=== PATIENT | male | born 1965 | race Caucasian/White ===

== ENCOUNTER 2019-07-13 08:58 | Outpatient (RCR) | payer BC, SELFPAY | END 2019-10-11 23:59 | disposition home or self-care (01) | LOC: ANHDMC 08:58 | PROVIDERS: PCP Family Medicine; Visit Provider Family Medicine | DX: E11.65 Type 2 diabetes mellitus with hyperglycemia (principal); Z71.89 Other specified counseling | CPT/HCPCS: G0108 ==

== ENCOUNTER 2019-11-25 16:08 | Outpatient (CLI) | payer BC, SELFPAY ==
[2019-11-25 17:16] LABS: Alanine Aminotransferase 21 U/L (4-50); Albumin Level 4.6 g/dL (3.5-5.1); Alkaline Phosphatase 67 U/L (38-126); Aspartate Amino Transferase 27 U/L (17-59); Bilirubin,Total 0.5 mg/dL (0.2-1.3); Blood Urea Nitrogen 17 mg/dL (9-20); Calcium 9.8 mg/dL (8.4-10.2); Carbon Dioxide 29 mmol/L (22-30); Chloride 94 mmol/L (98-107); Cholesterol 203 mg/dL (0-200); Estimated Glomerular Filt Rate > 60; Glucose 91 mg/dL (75-110); HDL Direct 36 mg/dL; Potassium 3.2 mmol/L (3.4-5.0); Sodium 135 mmol/L (137-145); Triglycerides 137 mg/dL (<150)
[2019-11-25 17:27] LABS: LDL Cholesterol Direct 124 mg/dL
[2019-11-25 17:28] LABS: Hemoglobin A1C 5.6 % (<5.7)
== END 2019-11-25 16:09 | disposition home or self-care (01) ==
PROVIDERS: PCP Family Medicine; Visit Provider Family Medicine
DX: E11.65 Type 2 diabetes mellitus with hyperglycemia (principal)
CPT/HCPCS: 36415; 80053; 80061; 83036

== ENCOUNTER 2019-12-13 16:23 | Outpatient (CLI) | payer BC, SELFPAY ==
[2019-12-13 16:55] LABS: Blood Urea Nitrogen 21 mg/dL (9-20); Calcium 9.4 mg/dL (8.4-10.2); Carbon Dioxide 27 mmol/L (22-30); Chloride 96 mmol/L (98-107); Estimated Glomerular Filt Rate > 60; Glucose 107 mg/dL (75-110); Sodium 134 mmol/L (137-145)
== END 2019-12-13 16:24 | disposition home or self-care (01) ==
PROVIDERS: PCP Family Medicine; Visit Provider Family Medicine
DX: E87.6 Hypokalemia (principal)
CPT/HCPCS: 36415; 80048

== ENCOUNTER 2020-03-06 10:42 | Outpatient (NON) | payer BC, SELFPAY ==
[2020-03-06 21:25] LABS: SARS-CoV-2 RNA PCR Negative
== END 2020-03-06 10:43 ==
PROVIDERS: PCP Family Medicine; Visit Provider Family Medicine
DX: Z20.828 Contact with and (suspected) exposure to other viral communicable diseases (principal)
CPT/HCPCS: 87635; C9803; U0003

== ENCOUNTER 2020-05-31 16:33 | Outpatient (CLI) | payer BC, SELFPAY ==
--- NOTE | ~2020-05-31 | XR_ITS ---
EXAMINATION: XR shoulder RT min 2V DATE: 05/31/2020 16:58 INDICATION: Bicipital tendinitis. TECHNIQUE: 4 views of right shoulder were obtained. COMPARISON: None. FINDINGS: Bone alignment is normal. No fracture. There is mild osteoarthritis of glenohumeral joint a nd moderate osteoarthritis of acromioclavicular joint. IMPRESSION: 1. Polyarticular osteoarthritis. Reviewed, dictated and finalized at location A. OUND SALES AGENT
== END 2020-05-31 16:34 | disposition home or self-care (01) ==
PROVIDERS: PCP Family Medicine; Visit Provider Family Medicine
DX: M75.21 Bicipital tendinitis, right shoulder (principal); M19.011 Primary osteoarthritis, right shoulder
CPT/HCPCS: 73030

== ENCOUNTER 2021-04-21 19:23 | Emergency (ER) | payer BC, SELFPAY ==
--- NOTE | 2021-04-21 19:25 | ED.GENADULT ---
HPI - General Adult General Chief complaint: Extremity Injury, Lower Stated complaint: right leg blue/black Time Seen by Provider: 04/21/21 19:25 Source: patient Mode of arrival: ambulatory Limitations: no limitations History of Present Illness HPI narrative: Jaime is a 56M with a PMH of back pain, HLD, psoriasis, BPH, prostatitis and angioedema that presented to the emergency department with discoloration on his inner thigh. He reports the area is a little tender but not exquisitely painful. He denies injury to the area or and numbness/weakness. He has been on a prednisone taper for a herniated disc (starting at 60mg) for a few days now. Related Data Home Medications Medication Instructions Recorded Confirmed multivitamin-ferrous 1 tablet PO DAILY 04/12/19 04/18/21 fumarate-folic acid 18 mg-400 mcg tablet lancets #50 each 05/24/19 04/18/21 Allergies Allergy/AdvReac Type Severity Reaction Status Date / Time Penicillins Allergy Severe RASH Verified 04/18/21 14:59 benazepril Allergy Intermediate Rash Verified 04/18/21 14:59 metformin Allergy Unknown Rash Verified 04/18/21 14:59 Review of Systems Constitutional: Constitutional: Reports no additional constitutional complaints Eyes: Eyes: Reports no additional eye complaints ENT: Reports system reviewed and no additional complaints, except as documented Cardiovascular: Cardiovascular: Reports no additional cardiovascular complaints Respiratory: Respiratory: Reports no additional respiratory complaints Gastrointestinal: Gastrointestinal: Reports no additional gastrointestinal complaints Genitourinary: Genitourinary: Reports no additional male genitourinary complaints Musculoskeletal: Musculoskeletal: Reports no additional musculoskeletal complaints Integumentary/Breasts: Skin/Breast: Reports as per HPI Neurologic: Reports system reviewed and no additional complaints, except as documented Psychiatric: Psychiatric: Reports no additional psychiatric complaints Endocrine: Endocrine: Reports no additional endocrine complaints Hematologic/Lymphatic: Hematologic/Lymphatic: Reports no additional hematologic/lymphatic complaints Allergic/Immunologic: Allergic/Immunologic: Reports no additional allergic/immunologic complaints [facility] Past Medical History Medical History Bacterial prostatitis Bicipital tendinitis, right shoulder Chronic superficial dermatitis Diabetes mellitus type 2, uncontrolled Surgical History Surgical History Status post left rotator cuff repair (12/18/18) Family History Family History Mother Family history of lung cancer Family history of malignant neoplasm Social History Social History Alcohol intake: current Exam Const: General: no acute distress and alert; No confusion Orientation/consciousness: patient oriented x3 Limitations: No altered mental status HENMT: Head: normal to inspection Other: normocephalic, atrauamtic Eyes: Conjunctivae: conjunctivae normal Pupils: Equal, round and reactive pupils present Neck: Neck: normal visual inspection Chest: Chest palpation & inspection: normal inspection of the chest Resp: Effort & Inspection: normal respiratory effort Auscultation: clear to auscultation bilaterally Cardio: Rate: regular rate and not tachycardic Rhythm: regular rhythm GI: Inspection: non-distended GI Palp: Yes Soft to palpation, No Tenderness to palpation present (GI) and No Guarding due to palpation present (GI) Skin: General skin exam: normal color Rashes: no rashes Neuro: General: patient oriented x3, moves all extremities, no meningeal signs and CN's II-XI intact bilaterally Extrem: Other: Right inner thigh is is purplish in color and mildly TTP. Distal pulses are st
[2021-04-21 19:54] VITALS: BP 180/111; PULSE 103; RESP 22; TEMP 36.8; O2SAT 97
[2021-04-21 20:07] VITALS: BP 180/111; PULSE 103; RESP 22; TEMP 36.8; O2SAT 97
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
== END 2021-04-21 20:09 | disposition home or self-care (01) ==
PROVIDERS: Emergency Provider Family Medicine; PCP Family Medicine
DX: R58 Hemorrhage, not elsewhere classified (principal); T38.0X5A Adverse effect of glucocorticoids and synthetic analogues, initial encounter
CPT/HCPCS: 99281; 99282

== ENCOUNTER → 2021-04-23 10:39 | Outpatient (CLI) | payer BC, SELFPAY ==
--- NOTE | ~2021-04-23 | XR_ITS ---
EXAMINATION: XR lumbar spine 6V w bending DATE: 04/23/2021 11:20 INDICATION: Radiculopathy, lumbosacral region. TECHNIQUE: 7 views of lumbar spine including flexion and extension views were obtained. COMPARISON: CT abdomen and pelvis 06/01/2018 FINDINGS: There is 4 degrees dextrocurvature of cervical spine. There are chronic bilateral L5 pars d efects. There is 9 mm anterolisthesis of L5 on S1. There is no abnormal motion with flexion or extens ion. There is mild chronic height loss of L5 vertebral body posteriorly. There is mild chronic anteri or wedging of L1 vertebral body. There are Schmorl's nodes at multiple levels. There is severely decr eased disc height at L5-S1 with endplate remodeling. There are endplate osteophytes at most levels. T here is multilevel mild facet joint osteoarthritis. There is a filter in the inferior vena cava. IMPRESSION: 1. Chronic bilateral L5 pars defects with grade 2 anterolisthesis of L5 on S1. 2. Severe lower lumbar spondylosis. Reviewed, dictated and finalized at location A. SHIFTER
== END ==
PROVIDERS: PCP Family Medicine; Visit Provider Family Medicine
DX: M47.27 Other spondylosis with radiculopathy, lumbosacral region (principal)
CPT/HCPCS: 72114

== ENCOUNTER → 2021-04-30 13:12 | Outpatient (CLI) | payer BC, SELFPAY ==
--- NOTE | ~2021-04-30 | MR_ITS ---
EXAMINATION: MR lumbar spine wo [facility] EXAM DATE: 04/30/2021 13:50 INDICATION: M54.17 - Radiculopathy. Low back pain, right leg pain. States lifting injury 7 weeks ago. TECHNIQUE: Multi-sequential, multiplanar MR images of the lumbar spine were obtained without contrast . Sagittal T1, T2, T2 fat saturation images. Axial T2 weighted images. There is no prior study for comparison. FINDINGS: There is mild anterior wedging of the L1 vertebral body, chronic. There is chronic bilatera l L5 spondylolysis with grade 2 anterolisthesis L5 on S1, moderate to severe loss of this disc height . Mild disc disease from T10 through L4. The conus medullaris terminates at the L1/2 level and has no rmal signal intensity and morphology. Small endplate Schmorl's nodes. Level by level evaluation: T11-12: Small left central disc protrusion. Facet arthropathy: None. Neural foraminal stenosis: No stenosis. Central canal stenosis: No stenosis. T12-L1: There is a mild diffuse disc bulge. Facet arthropathy: None. Neural foraminal stenosis: No stenosis. Central canal stenosis: No stenosis. L1-L2: Disc does not extend beyond the endplate margin. Facet arthropathy: Mild. Neural foraminal stenosis: No stenosis. Central canal stenosis: No stenosis. L2-L3: There is a mild diffuse disc bulge. Facet arthropathy: Mild to moderate. Neural foraminal stenosis: Mild bilateral. Central canal stenosis: No stenosis. L3-L4: There is a mild diffuse disc bulge. Facet arthropathy: Mild. Neural foraminal stenosis: No stenosis. Central canal stenosis: No stenosis. L4-L5: There is a mild diffuse disc bulge. Facet arthropathy: Mild bilateral. Neural foraminal stenosis: Moderate bilateral, right greater than left. Central canal stenosis: No stenosis. L5-S1: There is a mild to moderate diffuse disc bulge. Facet arthropathy: Poorly visualized. Neural foraminal stenosis: Moderate bilateral. Central canal stenosis: No stenosis. IMPRESSION: 1. L4-5 and L5-S1 moderate bilateral neural foraminal stenosis. 2. Chronic L5 spondylolysis, grade 2 anterolisthesis. 3. Chronic L1 compression. Reviewed, dictated and finalized at location A. E REPAIRER RECLAMATION
== END ==
PROVIDERS: PCP Family Medicine; Visit Provider Family Medicine
DX: M54.17 Radiculopathy, lumbosacral region (principal); M47.896 Other spondylosis, lumbar region
CPT/HCPCS: 72148

== ENCOUNTER 2021-11-06 11:32 | Emergency (ER) | payer BC, SELFPAY ==
[2021-11-06 11:32] VITALS: BP 140/85; PULSE 100; RESP 20; TEMP 36.2; O2SAT 100
[2021-11-06 12:02] LABS: Basophils Absolute Auto 0.06 K/mm3 (0.00-0.10); Basophils Percent Auto 0.4 % (0.0-1.0); Eosinophils Absolute Auto 0.78 K/mm3 (0.02-0.50); Eosinophils Percent Auto 5.6 % (1.0-6.0); Hematocrit 49.6 % (40.0-54.0); Hemoglobin 16.2 g/dL (14.0-18.0); Immature Granulocyte Absolute 0.07 K/mm3 (0.00-0.00); Immature Granulocyte Percent A 0.5 % (0.0-0.0); Lymphocytes Absolute Auto 1.05 K/mm3 (1.10-4.50); Lymphocytes Percent Auto 7.6 % (18.0-42.0); Mean Corpuscular HGB Conc 32.7 g/dL (32.0-36.0); Mean Corpuscular Hemoglobin 30.3 pg (27.0-31.0); Mean Corpuscular Volume 92.9 fL (78.0-102.0); Mean Platelet Volume 10.9 fl (8.7-11.0); Monocytes Absolute Auto 0.98 K/mm3 (0.10-0.90); Monocytes Percent Auto 7.1 % (2.0-11.0); Neutrophils Absolute Auto 10.9 K/mm3 (1.7-7.2); Neutrophils Percent Auto 78.8 % (50.0-70.0); Platelet Count Result 247 K/mm3 (150-420); Red Blood Count 5.34 M/mm3 (4.70-6.10); Red Cell Distribution Width 13.2 % (11.6-14.4); White Blood Count 13.9 K/mm3 (4.8-10.8)
[2021-11-06] MEDS: ACETAMINOPHEN 325 MG TABLET 975 MG PO (12:06)
[2021-11-06] MEDS: LACTATED RINGERS 1,000 ML 999 ML IV CONT ×2 (12:12→12:50)
[2021-11-06] MEDS: KETOROLAC 30 MG/ML VIAL (*BKC) IV PUSH (12:13)
[2021-11-06 12:18] LABS: Alanine Aminotransferase 46 U/L (16-63); Albumin Level 4.1 g/dL (3.4-5.0); Alkaline Phosphatase 95 U/L (46-116); Anion Gap 6 mmol/L (8-16); Aspartate Amino Transferase 16 U/L (15-37); Bilirubin,Total 0.7 mg/dL (0.00-1.00); Blood Urea Nitrogen 23 mg/dL (7-18); Calcium 9.4 mg/dL (8.5-10.1); Carbon Dioxide 33 mmol/L (21-32); Chloride 102 mmol/L (98-108); Estimated Glomerular Filt Rate > 60; Glucose 181 mg/dL (70-99); Osmolality Calculated 300 mOsm/kg (285-295); Potassium 4.2 mmol/L (3.5-5.1); Sodium 141 mmol/L (136-145); Total Protein 7.9 g/dL (6.4-8.2)
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
[2021-11-06] MEDS: SILVER SULFADIAZINE 1% CR 400 GM JAR (*BKC) 1 APPLIC TOPICAL (12:38)
[2021-11-06 12:40] VITALS: BP 132/68; PULSE 68; RESP 18; TEMP 36.4; O2SAT 100
== END 2021-11-06 13:35 | disposition home or self-care (01) ==
PROVIDERS: Emergency Provider Emergency Medicine; PCP Family Medicine
DX: L55.1 Sunburn of second degree (principal); L55.0 Sunburn of first degree; E86.0 Dehydration
CPT/HCPCS: 16020; 36415; 80053; 85025; 96361; 96374; 99284; A9270; J1885; J7120

== ENCOUNTER 2022-02-07 11:26 | Outpatient (CLI) | payer BC, SELFPAY ==
[2022-02-07 19:50] LABS: Alanine Aminotransferase 46 U/L (6-50); Albumin Level 4.5 g/dL (3.5-5.1); Alkaline Phosphatase 95 U/L (38-126); Anion Gap 11 mmol/L (8-16); Aspartate Amino Transferase 54 U/L (17-59); Bilirubin,Total 0.7 mg/dL (0.2-1.3); Blood Urea Nitrogen 20 mg/dL (9-20); Calcium 9.6 mg/dL (8.4-10.2); Carbon Dioxide 28 mmol/L (22-30); Chloride 100 mmol/L (98-107); Cholesterol 172 mg/dL (0-200); Estimated Glomerular Filt Rate > 60; Glucose 90 mg/dL (65-110); HDL Direct 43 mg/dL; Potassium 4.1 mmol/L (3.4-5.0); Sodium 139 mmol/L (137-145); Triglycerides 194 mg/dL (<150)
[2022-02-07 20:04] LABS: LDL Cholesterol Direct 92 mg/dL
[2022-02-07 20:10] LABS: Prostate Specific Antigen 4.4 ng/mL (< OR = 4.0)
[2022-02-07 20:42] LABS: Creatinine Urine 41.6 mg/dL
[2022-02-07 20:44] LABS: MALB Creatinine Ratio 14.9 mg/g (0-30); Microalbumin Urine Random 6.2 mg/L (0-16.7)
[2022-02-07 21:26] LABS: Hemoglobin A1C 5.8 % (<5.7)
== END 2022-02-07 11:27 | disposition home or self-care (01) ==
PROVIDERS: PCP Family Medicine; Visit Provider Family Medicine
DX: E78.5 Hyperlipidemia, unspecified (principal); E11.69 Type 2 diabetes mellitus with other specified complication; N13.8 Other obstructive and reflux uropathy; N40.1 Benign prostatic hyperplasia with lower urinary tract symptoms; I10 Essential (primary) hypertension; R97.20 Elevated prostate specific antigen [PSA]
CPT/HCPCS: 36415; 80053; 80061; 82043; 82607; 83036; 84153; G0103

== ENCOUNTER 2023-07-07 11:00 | Outpatient (CLI) | payer BC, SELFPAY ==
--- NOTE | ~2023-07-07 | XR_ITS ---
Right Shoulder Technique: AP and scapular Y views were obtained. Clinical History: Pain Findings: No fracture or dislocation is seen. Osseous alignment is anatomic. There is mild degenerati ve change of the glenohumeral and AC joints. Soft tissues are unremarkable. Impression: Mild degenerative changes, as above. Reviewed, dictated and finalized at location . UIT HELPER Impression: Mild degenerative changes, as above.
--- NOTE | ~2023-07-07 | XR_ITS ---
Left Shoulder Technique: AP and scapular Y views were obtained. Clinical History: Pain Findings: No fracture or dislocation is seen. Osseous alignment is anatomic. The glenohumeral and acr omioclavicular joint spaces are preserved. Soft tissues are unremarkable. Impression: Unremarkable left shoulder radiographs. Reviewed, dictated and finalized at [facility]. OWCASE CLEANER Impression: Unremarkable left shoulder radiographs.
== END 2023-07-07 11:01 | disposition home or self-care (01) ==
LOC: ANHIMG 11:05
PROVIDERS: PCP Family Medicine; Visit Provider Orthopaedic Surgery
DX: M19.012 Primary osteoarthritis, left shoulder (principal); M19.011 Primary osteoarthritis, right shoulder
CPT/HCPCS: 73030

== ENCOUNTER 2023-09-10 13:52 | Outpatient (CLI) | payer BC, SELFPAY ==
--- NOTE | ~2023-09-10 | MR_ITS ---
EXAMINATION: MR shoulder RT wo con DATE: 09/10/2023 14:30 INDICATION: Primary osteoarthritis at the right shoulder TECHNIQUE: Magnetic resonance imaging (MRI) of the right shoulder was performed without intravenous c ontrast. Sequences included axial PD-weighted FS FSE, coronal oblique PD-weighted FS FSE, coronal obl ique T2-weighted FS FSE, sagittal PD-weighted FS FSE, and sagittal T1-weighted SE. COMPARISON: None. FINDINGS: Coracoacromial arch: The acromion undersurface is curved in morphology (type II). The coracoacromial ligament is normal. M ild acromioclavicular osteoarthritis. There is prominent hypertrophic change along the cephalad aspec t of the acromion and lateral head of the clavicle as well as at the coracoid and clavicular insertio ns of the coracoclavicular ligament likely sequela of a prior chronic right acromioclavicular joint s eparation. Rotator cuff: Moderate supraspinatus and infraspinatus tendinopathy. There is a full-thickness tear of the posterio r most supraspinatus and anterior half of the infraspinatus tendons which overlies the apex of the hu meral head. Lateral margin of the tear is located 2.5 cm medial to the greater tuberosity footplate. The tear measures approximate 8 mm medial to lateral and 2.3 cm AP. The full-thickness tear is superi mposed over a larger moderate severity articular sided tear with significant attenuation of the supra spinatus and infraspinatus tendons on either side of the and retracted articular sided tear margin an d additional 1.2 cm medial to the medial margin of the full-thickness tear defect. The teres minor te ndon is normal. There is moderate subscapularis tendinopathy with full-thickness tear involving the cephalad two thir ds of the lesser tuberosity footplate. The caudal-most portion of the tendon as well as the subscapul salas muscular insertion remain intact. Also remaining intact as the bursal side of the more cephalad tendon which remains contiguous with the intact transverse humeral ligament. The frayed and poorly de fined tear margin is retracted approximately 3 cm medially from the lesser tuberosity footplate There is moderate fatty atrophy of the infraspinatus muscle belly and at the cephalad aspect of the subsca pularis muscle belly suggesting the tears are chronic. The supraspinatus muscle belly, teres minor mu scle belly and inferior aspect of the subscapularis muscle belly remain relatively preserved. Biceps tendon, glenoid labrum and glenohumeral cartilage: The long head of the biceps tendon is medially dislocated from the intertubercular groove passing med ial to the lesser tuberosity and between the remaining intact inferior and bursal portions of the sub scapularis tendon. There is moderate tendinopathy without discrete tear of the subluxed long head bic eps tendon. Diffuse degenerative tearing of the glenoid labrum most severe superiorly and posteriorly with the labral tissue appears thickened and with macerated appearance. There multiple prior labral cysts along the posterior margin of the glenoid. There is also deep chondral ulceration along the pos terior rim of the glenoid with underlying subarticular cystlike changes. Less severe partial thicknes s chondral ulceration along the posterior inferior aspect of the humeral head. Fluid: Physiologic amount of fluid in the glenohumeral joint. This extends through the full-thickness rotato r cuff tear defect to indicate with a small amount of fluid in the subacromial/subdeltoid bursa. No l oose osteochondral bodies. Bones: There is mild cephalad and posterior subluxation of the humeral head with respect to the glenoid. Nor mal marrow signal with no fracture or pathologic marrow replacing process. Hypertrophic changes along the lesser tuberosity side of the torn subscapularis tendon. IMPRESSION: 1. Moderate rotator cuff tendinopathy with likely chronic small to moderate-sized full-thickness tea
== END 2023-09-10 13:53 ==
PROVIDERS: PCP Orthopaedic Surgery; Visit Provider Orthopaedic Surgery
DX: M19.011 Primary osteoarthritis, right shoulder (principal); M75.121 Complete rotator cuff tear or rupture of right shoulder, not specified as traumatic
CPT/HCPCS: 73221

== ENCOUNTER 2023-11-21 11:41 | Outpatient (CLI) | payer BC, SELFPAY ==
--- NOTE | 2023-11-21 12:54 | ECG_ITS ---
Test Date: 2023-11-21 13:06:51 Measurements Intervals [place] Rate: 65 P: 61 FL: 195 QRS: 30 QRSD: 76 T: 35 QT: 354 QTc: 370 Interpretive Statements NORMAL SINUS RHYTHM NORMAL ELECTROCARDIOGRAM No previous ECG available for comparison Electronically Signed On 11-21-2023 15:55:52 CDT by Kael Joyce M.D.
[2023-11-21 13:16] LABS: Basophils Absolute Auto 0.1 K/mm3 (0.0-0.1); Basophils Percent Auto 0.9 % (0.2-1.2); Eosinophils Absolute Auto 0.7 K/mm3 (0-0.3); Hematocrit 47.1 % (42.0-52.0); Immature Granulocyte Absolute 0.05 K/mm3 (0.00-0.031); Immature Granulocyte Percent A 0.5 % (0-0.5); Lymphocytes Absolute Auto 2.15 K/mm3 (0.9-3.2); Lymphocytes Percent Auto 21.6 % (18.3-44.2); Mean Corpuscular Hemoglobin 30.2 pg (26-34); Mean Platelet Volume 10.8 fl (7.4-10.4); Monocytes Absolute Auto 0.8 K/mm3 (0.1-0.6); Monocytes Percent Auto 8.3 % (2.6-8.5); Neutrophils Absolute Auto 6.1 K/mm3 (1.3-6.7); Neutrophils Percent Auto 61.7 % (45.5-73.1); Platelet Count Result 240 k/mm3 (150-375); Red Blood Count 5.29 M/mm3 (4.6-6.20); Red Cell Distribution Width 12.8 % (11.5-14.5)
[2023-11-21 14:26] LABS: MRSA (PCR) NOT DETECTED (NOT DETECTE)
== END 2023-11-21 11:42 | disposition home or self-care (01) ==
LOC: ANHSURGERY 11:49
PROVIDERS: PCP Family Medicine; Visit Provider Orthopaedic Surgery
DX: M75.102 Unspecified rotator cuff tear or rupture of left shoulder, not specified as traumatic (principal); M19.011 Primary osteoarthritis, right shoulder; I10 Essential (primary) hypertension; Z01.818 Encounter for other preprocedural examination
CPT/HCPCS: 36415; 85025; 87641; 93005

== ENCOUNTER 2023-12-08 00:44 | Day surgery (SDC) | payer BC, SELFPAY ==
--- NOTE | 2023-11-21 12:40 | PC.NURSE ---
Report to the Outpatient Waiting Room, entrance under the green pavilion located off [facility], at time __1000 AM on date _12/08/23 . Planned Procedure Time: _1200 NOON . Time changes happen often and if your time is changed the preop area will call you the afternoon before. - You and your visitor will be asked to self-screen and do not enter if you have any COVID symptoms. - A mask is optional within the hospital at this time. Patients may have clear liquids (water, carbonated beverages, clear teas, apple juice) until 3 hours prior to surgery( 9:00 AM) with a maximum of 20 ounces. - No food from midnight until time of surgery - Infants may have breast milk until 4 hours before surgery, formula 6 hours prior to surgery. - Children will be allowed to drink immediately following surgery. If applicable, please bring a bottle or sippy cup to assist with drinking. Juice, water, soda, and popsicles are readily available. For infants on formula, please bring formula the day of surgery. Pacifiers are allowed. Take the following medications with a SIP of water the morning of surgery: ___NONE DO NOT STOP ANY OF YOUR OTHER PRESCRIPTION MEDICATIONS PRIOR TO SURGERY ?EXCEPT THE FOLLOWING Medications to discontinue per physician HOLD DICLOFENAC 7 DAYS PRE OP PER DR GALLOWAY.LAST DOSE 11/30/23. HOLD ALL VITAMINS AND SUPPLEMENTS 3 DAYS PRE OP.LAST DOSE 12/04/23 MAY TAKE TYLENOL IF NEEDED FOR PAIN Please no make-up, nail beninese, hairspray, perfume, deodorant, or body powder the day of surgery. No jewelry (including any body piercings) or valuables the day of surgery, leave them at home. Please take a shower or bath the night before, or the morning of, surgery with an antibacterial soap. Wear comfortable, loose fitting clothing. Children are encouraged to wear pajamas. - Jewelry must be removed prior to entering the operating room. Rings and piercings that are not removed may be cut off. - The hospital will not accept responsibility for valuables. - Please leave all valuables, including medications, at home the day of surgery. If you are going home after surgery, a licensed residential driver must drive you home. - NO public transportation without another adult if you receive anesthesia. - We recommend that an adult stay with you for 24 hours following discharge. - We also recommend that you do not drive, make important decision, drink alcoholic beverages, or take any drugs that were not prescribed by your health care provider for at least 24 hours after your discharge time. Follow any additional instructions given to you from your surgeon. If you or anyone in your household have experienced Covid symptoms in the past week, please notify your surgeon or the nurse liaison at the phone number below for possible testing. VERBAL AND WRITTEN instructions given to ___PT AND MARGOT and asked if any additional questions and then verbalized understanding. Patient advised to call surgeon office or pre surgery nurse liaison [phone] if any additional questions.
[2023-11-21 12:57] VITALS: BP 124/87; PULSE 88; RESP 18; TEMP 36.7; O2SAT 97; BMI 27.5
[2023-12-08] VITALS (13 sets, daily range): BP systolic 95–131; BP diastolic 56–85; PULSE 97–113; RESP 14–20; TEMP 36.2–36.8; O2SAT 93–100; BMI 26.6
--- NOTE | ~2023-12-08 | XR_ITS ---
EXAMINATION: XR shoulder RT min 2V DATE: 12/08/2023 16:13 INDICATION: Post right total shoulder arthroplasty. TECHNIQUE: AP and transscapular Y views of the right shoulder were obtained. COMPARISON: None FINDINGS: Right total shoulder arthroplasty which appears well seated in near-anatomic alignment. No fracture. Mild acromioclavicular osteoarthritis. Spectral postoperative gas in the surrounding soft tissues. He terotopic ossifications in the region of the coracoclavicular ligament likely sequela of chronic spra in. IMPRESSION: Expected appearance of a reverse right total shoulder arthroplasty, negative for postoperative purpos es. Reviewed, dictated and finalized at location A. IMPRESSION: Expected appearance of a reverse right total shoulder arthroplasty, negative fo r postoperative purposes.
--- NOTE | 2023-12-08 07:58 | WPDHPUPDATE1 ---
History and Physical Update Update Date/Time: 12/08/23 07:58 History and Physical has been reviewed, including an updated exam of the patient. There are NO changes in the patient's condition. Risks, benefits, and alternatives have been discussed and questions answered. Patient agrees to proceed with procedure.
[2023-12-08] MEDS: ACETAMINOPHEN 500 MG TABLET 1000 MG PO (11:17)
--- NOTE | 2023-12-08 12:07 | WPDANESEPPF ---
Anes - Initial Pre Proc Eval Procedure: Operation Date: 12/08/23 12:00 Proposed Procedures p Right Reverse Total Shoulder Arthroplasty - Boaz Fleming MD Date/Time: 12/08/23 12:07 Surgeon: Boaz Fleming MD Pre Op Diagnosis: Rot Cuff Arthrotomy Right Shoulder Patient Data Age: 58 Gender: M Height: 1.85 m Weight: 91.5 kg Last Vital Signs Temp 98.2 F 12/08/23 11:59 Pulse 97 12/08/23 11:59 Resp 16 12/08/23 11:59 BP 110/71 12/08/23 11:59 Pulse Ox 95 12/08/23 11:59 O2 Del Method Room Air 12/08/23 11:59 Allergies Allergy/AdvReac Type Severity Reaction Status Date / Time Penicillins Allergy Severe RASH Verified 11/21/23 13:22 benazepril Allergy Intermediate Rash Verified 11/21/23 13:22 metformin Allergy Unknown Rash Verified 11/21/23 13:22 Home Medications Medication Instructions Recorded Confirmed Type multivitamin-ferrous 1 tablet PO DAILY 04/12/19 11/21/23 History fumarate-folic acid 18 mg-400 mcg tablet (Centrum) atorvastatin 10 mg tablet 10 mg PO DAILY #90 tabs 10/09/23 11/21/23 Rx cholecalciferol (vitamin D3) 50 50 mcg PO DAILY 10/09/23 11/21/23 History mcg (2,000 unit) capsule diclofenac sodium 75 mg See Rx Instructions .Route 10/09/23 12/08/23 Rx tablet,delayed release .COMPLEX #180 tabs finasteride 5 mg tablet 5 mg PO DAILY #90 tabs 10/09/23 11/21/23 Rx losartan 50 mg tablet See Rx Instructions .Route 10/09/23 11/21/23 Rx .COMPLEX #90 tabs trazodone 100 mg tablet See Rx Instructions .Route 10/09/23 11/21/23 Rx .COMPLEX #180 tabs potassium chloride 20 mEq 20 meq PO DAILY #90 tabs 10/10/23 11/21/23 Rx tablet,extended release(part/cryst) (Klor-Con M) diphenhydramine HCl 50 mg capsule 50 mg PO HS INSOMNIA 11/21/23 11/21/23 History psyllium husk 0.52 gram capsule 0.52 g PO QPM 11/21/23 11/21/23 History (Daily Fiber) Patient hx anesthesia problems: other (Prev hx of CHI and trach, in 2019 pt needed 6.5 ETT for successful intubation. ) Family hx anesthesia problems: none Results Review: All pre-operative results and documents have been reviewed as part of the pre-operative evaluation. [facility] Past Medical History Medical History Bacterial prostatitis Bicipital tendinitis, right shoulder Chronic superficial dermatitis Diabetes mellitus type 2, uncontrolled Head injury Surgical History Surgical History Status post left rotator cuff repair (12/18/18) Family History Family History Mother Family history of lung cancer Family history of malignant neoplasm Social History Social History Smoking status: Never smoker Alcohol intake: current Do You Feel Safe in your Home?: Yes Lack of Transportation: No Lack of Food: Sometimes True Current Housing: I Have Housing Concerned About Future Housing: No Difficulty Paying Gas/Electric Bills: YES Difficulty Paying for Meds: YES Currently Unemployed: YES Education: Trade/Vocational Certificate Difficulty w/ Childcare or Family Care: No Living arrangements: with family Spiritual care concerns: No Anes - Eval Final PreProcedure Day of Procedure 12/08/23 12:07 Patient weight: normal Heart: regular rate and rhythm Lungs: clear to auscultation Airway: Mallampati scale class II and special considerations (Prev trach scar noted. Pts says in the past there was difficulty, used a 6.5 ETT for intubatation. ) Neurological: alert and oriented and other (Mild dysarthria. ) Last oral intake: >/= 8 hours ASA classification: III Emergent: no Anesthetic plan: proceed Anesthesia type and monitoring: general ETT and regional Results Review: All pre-operative results and documents have been reviewed as part of the pre-operative e
--- NOTE | 2023-12-08 12:29 | WPDANESPNB ---
Anes - Peripheral Nerve Block Date/Time: 12/08/23 12:29 I have discussed with the patient/family/POA the placement of a peripheral nerve block for post-operative pain management, including associated risks, benefits, complications, and side effects. Alternative methods of post-operative analgesia were detailed. Questions were solicited and answers provided to the satisfaction of the patient/family/POA. Time-Out: A pre-procedural Time-Out was completed immediately before starting the procedure and confirmed: Patient Identification, Site, Procedure, Patient Position and the Availability of Requisite Equipment. Clinical Indications: Acute post-operative pain management requested by the operative surgeon. Nerve Block Insertion Note Anes-nerve block: interscalene right Patient position: supine Skin prep: chlorhexidine Needle: 22 gauge, stimulating, insulated echogenic needle. Needle length: 80 mm Technique: ultrasound Injectate: other (Bupiv 0.5%, 10 mls. ) Observations: tolerated well Complications: none Procedure start time:: 1200 Procedure end time:: 1205
[2023-12-08] MEDS: ceFAZolin 2 GM/D5W 50 ML 2 GM/50 ML BAG IVPB ×2 (12:30→20:14)
[2023-12-08] MEDS: SODIUM CHLORIDE 0.9% IV 37.7 ML, MORPHINE SULFATE INJ (*CRX) 2 MG, ROPivacaine HCL 1% 2... INFILTRATE (12:48)
[2023-12-08] MEDS: VANCOMYCIN HCL 1,000 MG VIAL 1000 MG TOPICAL (12:49)
[2023-12-08] MEDS: LACTATED RINGERS 1,000 ML 30 ML IV CONT ×2 (14:44)
--- NOTE | 2023-12-08 15:48 | W.PM.PROC2 ---
Procedure Note - Detailed Date of Procedure 12/08/23 Pre-op Diagnosis Rot Cuff Arthropathy Right Shoulder Post-op Diagnosis Same Procedure Performed Reverse total shoulder arthroplasty, right. Surgeon Boaz Fleming MD Lead Python Developer Carla Meehan PA-C Anesthesia General and Regional (Interscalene block.) Indications Chronic massive cuff tear with early degenerative changes. Description of Procedure The patient was given an interscalene block in the preoperative area. Preoperative antibiotics were given. The patient was transferred to the operating room and a general anesthetic was administered. The beach chair position was used at 45 degrees. All bony prominences were padded. The head was carefully stabilized on the [facility] host/hostess head. A sterile prep and drape was performed in the usual manner with ChloraPrep. A longitudinal incision was created at the anterior shoulder just lateral to the deltopectoral interval. Hydrogen peroxide was placed on the incision and then rinsed after one minute. Careful dissection was performed to expose the interval and protect the cephalic vein. The vein was retracted medially. The upper border of the pectoralis was released. Anterior circumflex vessel branches were suture ligated. The biceps was tenodesed. The subscapularis was attenuated and the tissue was poor. A peel was performed. The inferior capsule was released, exposing the humeral head. Minimal osteophytes were removed. Care was taken to stay on bone to protect the axillary nerve. The anatomic head cut was taken with the oscillating saw. The cut protector was placed, and attention was turned to the glenoid. Retractors were placed. Releases were carried out for exposure. The subscapularis was mobilized, the inferior capsule and long head of triceps released, and the superior and middle glenohumeral ligaments released as well. Labral tissue was hypertrophic, and was resected as needed, including posteriorly. The sizing template was used to assess the baseplate position low on the glenoid. A guide pin was placed. Minimal reaming was used to accomplish a flat surface without violating the subchondral bone. Version was corrected according to preoperative templating, with slight inferior tilt added. The boss was drilled, and the real component was impacted into position. Supplemental screws were placed centrally, superiorly, and inferiorly. The glenosphere was impacted into the taper. Attention was turned to the humerus. The guide pin was placed, central drilling performed, and the broach trial inserted. The neck anteversion and inclination were carefully assessed.The proximal humerus was reamed for the inset component. The humeral components were trialed. The real humeral stem, tray, and insert were impacted into position. The shoulder was copiously irrigated periodically with pulsatile lavage. The shoulder was reduced and stability confirmed. 1 gram of Vancomycin powder was placed in the joint. The biceps tenodesis was incorporated with the pectoralis tendon repair. The deltopectoral space was reapproximated with number 1 Vicryl. The remaining tissue was closed with 0 Quill and 2-0 Quill running suture and steri-strips. A sterile silver occlusive dressing and shoulder immobilizer were placed. The patient was transferred to the recovery room. Physician accounts receivable assistant, Carla Meehan PA-C, required for surgery; including patient positioning, draping, tissue retraction, maintaining instrument position, cement removal, wound closure, and dressing placement. Implants Shoulder Innovations reverse TSA size 0 stem. +0 polyethylene insert. standard baseplate. 36 +6 mm glenosphere. Estimated Blood Loss 150 Drains No Pathology None sent Complications No immediate complications Condition Stable Disposition PACU [facility] Billing Surgery - Charge Forward: Surgery Billing
--- NOTE | 2023-12-08 16:34 | ADMGEN ---
This patient, Jaime Garland Jr., was admitted to Medical Room 247-. Patient/family oriented to hospital policies and general routines including ID bracelet, bed and alarms, visiting hours, pain management, procedures, bathroom and other care routines, personal items, smoking policy, room service/diet, and visiting hours. Information on how to activate the Rapid Response Team has been discussed. Patient/Family are encouraged to report perceived risks to care and to ask questions if they do not understand what they are told or what they should do.
[2023-12-08 17:18] LABS: Glucose Point of Care 102 mg/dl (65-105)
[2023-12-08] MEDS: SENNA/DOCUSATE SODIUM TABLET 2 TAB PO (17:28)
[2023-12-08] MEDS: DICLOFENAC SOD 75 MG TABLET.EC PO (17:28)
[2023-12-08] MEDS: ACETAMINOPHEN 325 MG TABLET 650 MG PO ×2 (17:28→23:43)
[2023-12-08] MEDS: ASPIRIN 81 MG ENTERIC TABLET PO (20:15)
[2023-12-08] MEDS: FAMOTIDINE 20 MG TABLET PO (20:15)
[2023-12-08] MEDS: diphenhydrAMINE HCl CAP 25 MG CAPSULE 50 MG PO (20:15)
[2023-12-08] MEDS: traZODone HCL 50 MG TABLET PO (20:17)
[2023-12-08] MEDS: oxyCODONE/ACETAMINOPHEN (*CRX) 10-325 MG TABLET 1 TAB PO (23:52)
[2023-12-09] MEDS: HYDROmorphone HCL INJ (*CRX) 1 MG/ML SYR IV PUSH (01:08)
[2023-12-09 01:55] VITALS: BP 129/78; PULSE 118; RESP 18; TEMP 36.6; O2SAT 94
[2023-12-09] MEDS: CYCLOBENZAPRINE HCL 10 MG TABLET PO (02:27)
[2023-12-09] MEDS: ceFAZolin 2 GM/D5W 50 ML 2 GM/50 ML BAG IVPB (04:27)
[2023-12-09] MEDS: traMADol HCL (*CRX) 50 MG TABLET PO (05:01)
[2023-12-09 05:18] LABS: Basophils Absolute Auto 0.1 K/mm3 (0.0-0.1); Basophils Percent Auto 0.3 % (0.2-1.2); Eosinophils Absolute Auto 0.1 K/mm3 (0-0.3); Eosinophils Percent Auto 0.9 % (0-4.4); Hematocrit 41.6 % (42.0-52.0); Hemoglobin 14.3 g/dL (14.0-18.0); Immature Granulocyte Absolute 0.07 K/mm3 (0.00-0.031); Immature Granulocyte Percent A 0.4 % (0-0.5); Lymphocytes Absolute Auto 1.36 K/mm3 (0.9-3.2); Lymphocytes Percent Auto 8.3 % (18.3-44.2); Mean Corpuscular HGB Conc 34.4 g/dl (32-36); Mean Corpuscular Hemoglobin 31.1 pg (26-34); Mean Corpuscular Volume 90.4 fl (80-100); Mean Platelet Volume 10.7 fl (7.4-10.4); Monocytes Absolute Auto 1.4 K/mm3 (0.1-0.6); Monocytes Percent Auto 8.6 % (2.6-8.5); Neutrophils Absolute Auto 13.4 K/mm3 (1.3-6.7); Neutrophils Percent Auto 81.5 % (45.5-73.1); Platelet Count Result 207 k/mm3 (150-375); White Blood Count 16.5 K/mm3 (4.5-10.0)
[2023-12-09 05:30] LABS: Anion Gap 9 mmol/L (4-12); Blood Urea Nitrogen 15 mg/dL (9-20); Calcium 8.4 mg/dL (8.4-10.2); Carbon Dioxide 27 mmol/L (22-30); Chloride 99 mmol/L (98-107); Estimated CRCL calculation 89 ml/min; Estimated Glomerular Filt Rate > 60; Glucose 132 mg/dL (65-110); Potassium 4.4 mmol/L (3.4-5.0); Sodium 135 mmol/L (137-145)
[2023-12-09 05:40] VITALS: BP 104/62; PULSE 114; RESP 18; TEMP 36.9; O2SAT 92
[2023-12-09] MEDS: ACETAMINOPHEN 325 MG TABLET 650 MG PO (05:52)
[2023-12-09 07:45] VITALS: O2SAT 94
[2023-12-09] MEDS: ASPIRIN 81 MG ENTERIC TABLET PO (08:17)
[2023-12-09] MEDS: ATORVASTATIN 10 MG TABLET PO (08:17)
[2023-12-09] MEDS: DICLOFENAC SOD 75 MG TABLET.EC PO (08:17)
[2023-12-09] MEDS: FAMOTIDINE 20 MG TABLET PO (08:18)
[2023-12-09] MEDS: SENNA/DOCUSATE SODIUM TABLET 2 TAB PO (08:18)
[2023-12-09] MEDS: FINASTERIDE 5 MG TABLET PO (08:18)
[2023-12-09] MEDS: traZODone HCL 50 MG TABLET PO (08:19)
[2023-12-09] MEDS: MULTIVITAMINS /C LUTEIN (CENTRUM SILVER) TABLET *BKC 1 TAB PO (08:19)
[2023-12-09] MEDS: LOSARTAN POTASSIUM 50 MG TABLET PO (08:19)
[2023-12-09 10:00] VITALS: BP 95/59; PULSE 100; RESP 16; TEMP 36.6; O2SAT 94
--- NOTE | 2023-12-09 10:10 | PM.DS ---
DS: Admitting Diagnosis Discharge Date 12/09/23 Admitting Diagnosis massive rotator cuff tear DS: Discharge Diagnosis Discharge Diagnosis (1) Status post reverse total arthroplasty of right shoulder: Code(s): Z96.611 - Presence of right artificial shoulder joint Status: Acute Assessment and Plan: Postop day 1: Right reverse total shoulder arthroplasty. Patient tolerated procedure well. No complications. Pain manageable with pain medication. No numbness or tingling. We had a lengthy discussion regarding postoperative wound care, limitations, expectations, and exercises. Patient shows good understanding. He has had initial physical therapy and is tolerating it well. DVT prophylaxis: 81 mg baby aspirin b.i.d. for 14 days. Pain medication: Percocet. Patient has followup appointment with Dr. Fleming in 3 weeks. DS: Summary Hospital Course Hospital Course: Patient tolerated procedure well. Has had PT/OT without issues. Status at Discharge Functional status at discharge: independent ambulation Overall status at discharge: patient is progressing back to baseline Time Spent with Patient Time attestation: Total time spent providing and/or coordinating discharge services: Exam Narrative: Normal weight male. Resting comfortably in chair. Wearing sling. Dressing dry and intact with no drainage. Moderate swelling. Moderate ecchymosis. No erythema. No hematoma. Range of motion limited due to pain. Calf nontender. Neurologic status intact. No varicosities. Distal pulses palpable. Axillary nerve intact. DS: Data Data Completed and Pending Labs on day of discharge: Labs from last 24 hours 12/09/23 12/08/23 12/08/23 05:01 17:13 11:41 WBC 16.5 H RBC 4.60 Hgb 14.3 Hct 41.6 L MCV 90.4 MCH 31.1 MCHC 34.4 RDW 13.0 Plt Count 207 MPV 10.7 H Immature Gran % (Auto) 0.4 Neut % (Auto) 81.5 H Lymph % (Auto) 8.3 L [place] % (Auto) 8.6 H Eos % (Auto) 0.9 Baso % (Auto) 0.3 Lymph # (Auto) 1.36 [place] # (Auto) 1.4 H Eos # (Auto) 0.1 Baso # (Auto) 0.1 Abs Immat Gran (auto) 0.07 H Absolute Neuts (auto) 13.4 H Absolute Nucleated RBC 0.000 Nucleated RBC % 0.0 Sodium 135 L Potassium 4.4 Chloride 99 Carbon Dioxide 27 Anion Gap 9 BUN 15 D Creatinine 0.90 Estim Creat Clear Calc 89 Estimated GFR > 60 Glucose 132 H POC Capillary Glucose 102 Calcium 8.4 Blood Type A Positive Antibody Screen Negative Discharge Plan Discharge Patient Disposition: Home, Self-Care Discharge Instructions: See green instruction sheets Stand Alone Forms: General Discharge Instructions Follow-up/Referrals: Carla Meehan PA [Physician Switchboard Wirer] - Discharge Medications: New aspirin 81 mg tablet,delayed release (DR/EC) 81 mg PO BID 14 Days Qty: 28 0RF oxycodone-acetaminophen 5-325 mg tablet 1 - 2 tablet PO Q4-6H MDD 6 PRN (Reason: pain) Qty: 30 0RF Continued Centrum 18-400 mg-mcg tablet 1 tablet PO DAILY cholecalciferol (vitamin D3) 50 mcg (2,000 unit) capsule 50 mcg PO DAILY atorvastatin 10 mg tablet 10 mg PO DAILY Qty: 90 3RF diclofenac sodium 75 mg tablet,delayed release (DR/EC) See Rx Instructions .ROUTE .COMPLEX Qty: 180 3RF Dose Instruction: TAKE 1 TABLET BY MOUTH TWICE DAILY Rx Instructions: TAKE 1 TABLET BY MOUTH TWICE DAILY finasteride 5 mg tablet 5 mg PO DAILY Qty: 90 3RF Patient Comments: QPM losartan 50 mg tablet See Rx Instructions .ROUTE .COMPLEX Qty: 90 3RF Dose Instruction: TAKE 1 TABLET BY MOUTH DAILY Patient Comments: QPM Rx Instructions: TAKE 1 TABLET BY MOUTH DAILY trazodone 100 mg tablet See Rx Instructions .ROUTE .COMPLEX Qty: 180 3RF Dose Instruction: TAKE 1 TABLET BY MOUTH TWICE DAILY Patient Comments: TAKES 200MG AT HS Rx Instruc
--- NOTE | 2023-12-09 11:04 | WPDANESPN ---
Anes - Prog Note Post-Op Date/Time: 12/09/23 11:04 Cardiovascular status: normal Respiratory status: normal Airway patency: baseline Mental status: baseline Post-Op hydration status: normal Vital Signs: Last Vital Signs Temp 36.6 C 12/09/23 10:00 Pulse 100 12/09/23 10:00 Resp 16 12/09/23 10:00 BP 95/59 L 12/09/23 10:00 Pulse Ox 94 12/09/23 10:00 O2 Del Method Room Air 12/09/23 08:17 O2 Flow Rate 8 12/08/23 14:50 Pain Score (VAS): 07/05 I/O: Intake & Output 12/08/23 12/09/23 12/09/23 23:59 07:59 15:59 Intake Total 1130 50 380 Balance 1130 50 380 Laboratory Tests 12/09/23 05:01 12/09/23 05:01 12/08/23 12/08/23 12/09/23 11:41 17:13 05:01 WBC 16.5 H RBC 4.60 Hgb 14.3 Hct 41.6 L MCV 90.4 MCH 31.1 MCHC 34.4 RDW 13.0 Plt Count 207 MPV 10.7 H Immature Gran % (Auto) 0.4 Neut % (Auto) 81.5 H Lymph % (Auto) 8.3 L [place] % (Auto) 8.6 H Eos % (Auto) 0.9 Baso % (Auto) 0.3 Lymph # (Auto) 1.36 [place] # (Auto) 1.4 H Eos # (Auto) 0.1 Baso # (Auto) 0.1 Abs Immat Gran (auto) 0.07 H Absolute Neuts (auto) 13.4 H Absolute Nucleated RBC 0.000 Nucleated RBC % 0.0 Sodium 135 L Potassium 4.4 Chloride 99 Carbon Dioxide 27 Anion Gap 9 BUN 15 D Creatinine 0.90 Estim Creat Clear Calc 89 Estimated GFR > 60 Glucose 132 H POC Capillary Glucose 102 Calcium 8.4 Blood Type A Positive Antibody Screen Negative Post-procedural complaints: none Patient Feedback: Patient satisfied with anesthetic care.
== END 2023-12-09 11:26 | disposition home or self-care (01) ==
LOC: ANHSURGERY 12:11 → ANH2MED 16:31
PROVIDERS: Physician Assistant Surgical; PCP Family Medicine; Visit Provider Orthopaedic Surgery
PROC: (CPT 23472; principal; 2023-12-08 12:00)
DX: M75.101 Unspecified rotator cuff tear or rupture of right shoulder, not specified as traumatic (principal); M19.011 Primary osteoarthritis, right shoulder; G89.18 Other acute postprocedural pain; E11.9 Type 2 diabetes mellitus without complications
CPT/HCPCS: 23472; 64415; 36415; 73030; 80048; 82948; 85025; 86850; 86900; 86901; 97110; 97161; 97165; 97535; A4565; A9270; C1776; J0171; J0690; J1170; J1885; J2250; J2270; J2371; J2405; J2704; J2795; J3010; J3370; J7120